=== PATIENT | male | born 1980 | race Caucasian/White ===

== ENCOUNTER 2021-12-22 09:55 | Outpatient (CLI) | payer BC ==
[2021-12-22 22:06] LABS: SARS-CoV-2 PCR by NAA Not Detected (NotDetected)
== END 2021-12-22 09:56 | disposition home or self-care (01) ==
LOC: CSHLAB 09:55
PROVIDERS: ATTEND Internal Medicine Gastroenterology
DX: Z20.822 Contact with and (suspected) exposure to COVID-19 (principal); R10.9 Unspecified abdominal pain
CPT/HCPCS: U0003; U0005

== ENCOUNTER 2021-12-27 07:54 | Day surgery (SDC) | payer BC ==
[2021-12-22 13:38] VITALS: BMI 28.4
[~2021-12-27 07:54] MED LIST: HYDROmorphone 0.5 MG/0.5 ML SYRINGE ONE; Lidocaine 2% MPF 10 ML AMP (For Epidural Use) ONE; PROPOFOL 20 ML ONE
[2021-12-27] MEDS ORDERED: Lidocaine 1% MPF 2 ML VIAL ONE (09:02)
[2021-12-27] MEDS ORDERED: Midazolam HCl 2 mg/2 ml Vial ONE (09:45)
[2021-12-27] MEDS ORDERED: PROPOFOL 20 ML ONE (10:04)
== END 2021-12-27 10:45 | disposition home or self-care (01) ==
LOC: CSHSDC 07:54
PROVIDERS: ATTEND Internal Medicine Gastroenterology
PROC: 0DB98ZZ Excision of Duodenum, Via Natural or Artificial Opening Endoscopic (ICD-10-PCS; principal; 2021-12-27)
DX: R10.13 Epigastric pain (principal); R10.9 Unspecified abdominal pain; R63.4 Abnormal weight loss; I10 Essential (primary) hypertension; Z87.891 Personal history of nicotine dependence
CPT/HCPCS: 88305; J1170; J2250; J2704